=== PATIENT | female | born 1960 | race Caucasian/White ===

== ENCOUNTER → 2019-12-27 | Emergency (ER) | payer OTHER ==
[~2019-12-27] VITALS: Ht 167.6 cm; Wt 70.0 kg
[2019-12-27 14:15] VITALS: BP 106/63
== END ==
LOC: ER 13:56
DX: Z03.818 Encounter for observation for suspected exposure to other biological agents ruled out (principal)
CPT/HCPCS: 87635; 99283; C9803; 99281